=== PATIENT | male | born 1950 | race Caucasian/White ===

== ENCOUNTER 2024-01-04 22:04 | Emergency (ER) | payer OTHER ==
[2024-01-04] MEDS ORDERED: Ketorolac Tromethamine 30 MG (1 mL) VIAL ONE (23:40)
[2024-01-04] MEDS ORDERED: Dexamethasone 4 mg/ml Vial ONE (23:40)
[2024-01-05 00:28] LABS: Influenza A by NAA Not Detected (NotDetected); Influenza B by NAA Not Detected (NotDetected); SARS-CoV-2 NAA Rapid Test Not Detected (NotDetected)
== END 2024-01-05 00:18 | disposition home or self-care (01) ==
LOC: ERS 22:04
DX: J02.8 Acute pharyngitis due to other specified organisms (principal)
CPT/HCPCS: 87081; 87430; 99284; J1100; J1885